=== PATIENT | female | born 1965 | race Caucasian/White ===

== ENCOUNTER 2016-10-27 10:53 | Outpatient (CLI) | payer OTHER ==
[2016-10-27 17:05] LABS: ALT (SGPT) 14 U/L (0-55); AST (SGOT) 19 U/L (5-34); Albumin 3.7 g/dL (3.5-5.0); Alkaline Phosphatase 77 U/L (40-150); Anion Gap 10 mmol/L (10-20); BUN (Urea Nitrogen) 8 mg/dL (7.0-18.7); Bilirubin, Total 0.2 mg/dL (0.2-1.2); Calc. Creatinine Clearance 0 mL/min (70-130); Calcium 8.8 mg/dL (7.8-10.44); Carbon Dioxide 27 mmol/L (22-29); Chloride 107 mmol/L (98-107); Estimated GFR-MDRD 90; Globulin 2.4 g/dL (2.4-3.5); Glucose 100 mg/dL (70-105); Potassium 3.9 mmol/L (3.5-5.1); Protein, Total 6.1 g/dL (6.0-8.3); Sodium 140 mmol/L (136-145)
[2016-10-27 18:25] LABS: Ferritin 3.29 ng/mL (10-291)
[2016-10-27 21:49] LABS: #Basophils 0.1 thou/uL (0.0-0.2); #Eosinphils 0.2 thou/uL (0.0-0.7); #Lymphocytes 1.6 thou/uL (1.20-3.40); #Monocytes 0.2 thou/uL (0.11-0.59); #Neutrophils 2.6 thou/uL (1.40-6.50); %Basophils 2.1 % (0.0-1.0); %Eosinophils 3.9 % (0.0-10.0); %Monocytes 4.3 % (0.0-10.0); %Neutrophils 54.6 % (42.0-75.0); Hemoglobin 9.4 g/dL (12.0-16.0); MDiff Complete? YES; Mean Corpuscular HGB CONC 28.3 g/dL (32.0-36.0); Mean Corpuscular Volume 70.8 fl (81.0-99.0); Mean Platelet Volume 6.2 fL (7.4-10.4); Microcytosis MODERATE=15-30 cells (100X) (0-5/hpf); PLT Morphology Comment Appears Adequate; Platelet Count 385 thou/uL (130-400); RBC Distribution Width 15.9 % (11.5-14.5); White Blood Cell (WBC) Count 4.7 thou/uL (4.8-10.8)
[2016-10-27 22:17] LABS: Thyroid Stimulating Hormone 0.822 uIU/mL (0.35-4.94)
[2016-10-28 21:13] LABS: Iron 24 ug/dL (50-170); Iron Binding Capacity, Total 378 mcg/dL (265-497)
== END 2016-10-27 10:54 | disposition home or self-care (01) ==
LOC: LABLEX 10:53
PROVIDERS: ATTEND Family Medicine
DX: M79.671 Pain in right foot (principal); D50.9 Iron deficiency anemia, unspecified; G47.00 Insomnia, unspecified; M25.50 Pain in unspecified joint
CPT/HCPCS: 80053; 82728; 83540; 83550; 84443; 85025; 85652; 86430

== ENCOUNTER 2016-10-27 15:49 | Outpatient (CLI) | payer OTHER ==
--- NOTE | 2016-10-27 20:15 | RAD ---
RIGHT FOOT THREE VIEWS 10/27/16 No fracture was seen. The bony structures showed no acute changes. There is probably the beginnings of a very tiny calcaneal spur. IMPRESSION: No acute changes. POS: HOME
== END 2016-10-27 15:50 | disposition home or self-care (01) ==
LOC: BURRAD 15:49
PROVIDERS: ATTEND Family Medicine
DX: M79.671 Pain in right foot (principal)

== ENCOUNTER 2016-11-03 13:49 | Outpatient (CLI) | payer OTHER | END 2016-11-03 13:50 | disposition home or self-care (01) | LOC: LABLEX 13:49 | PROVIDERS: ATTEND Family Medicine | DX: Z12.4 Encounter for screening for malignant neoplasm of cervix (principal); Z00.00 Encounter for general adult medical examination without abnormal findings | CPT/HCPCS: 87624; 88142; G0123 ==

== ENCOUNTER 2017-10-04 19:43 | Emergency (ER) | payer OTHER ==
[2017-10-04] MEDS ORDERED: HYDROcodone/Acetaminophen 5/325 mg Tablet ONE (20:26)
--- NOTE | 2017-10-04 23:11 | RAD ---
RIGHT FOREARM TWO VIEWS: Date: 10-04-17 FINDINGS: No fracture was seen. The radius and ulna appear intact. There is no sign of joint effusion at the el bow. IMPRESSION: No acute finding. POS: HOME
--- NOTE | 2017-10-04 23:11 | RAD ---
RIGHT HUMERUS TWO VIEWS: Date: 10-04-17 FINDINGS: No fracture was seen. The humerus appears intact. There is no dislocation. IMPRESSION: No acute finding. POS: HOME
== END 2017-10-04 20:53 | disposition home or self-care (01) ==
LOC: BURERS 19:43
DX: S53.401A Unspecified sprain of right elbow, initial encounter (principal); I10 Essential (primary) hypertension; F41.9 Anxiety disorder, unspecified; F32.9 Major depressive disorder, single episode, unspecified; Z79.899 Other long term (current) drug therapy; W18.30XA Fall on same level, unspecified, initial encounter

== ENCOUNTER 2019-02-14 12:00 | Outpatient (CLI) | payer OTHER ==
--- NOTE | 2019-02-14 19:37 | RAD ---
RIGHT FOOT THREE VIEWS: 02/14/19 No fracture was seen. The first MTP joint appears normal, as do the adjacent bones. A tiny calcaneal spur was present. IMPRESSION: No acute findings. POS: HOME
== END 2019-02-14 12:01 | disposition home or self-care (01) ==
LOC: BURRAD 12:00
PROVIDERS: ATTEND Physician Assistant
DX: S99.921A Unspecified injury of right foot, initial encounter (principal)

== ENCOUNTER 2020-02-11 09:39 | Emergency (ER) | payer OTHER, SELFPAY ==
[2020-02-11 10:00] LABS: Blood, Urine Large (Negative); Clarity Turbid (Clear); Leukocyte Negative (Negative)
[2020-02-11 10:02] LABS: Nitrite Unable to Interpret (Negative); Protein, Urine (Dipstick) Unable to Interpret mg/dL (Neg-Trace)
[2020-02-11 10:03] LABS: Bilirubin Unable to Interpret (Negative); Glucose, Urine (Dipstick) Unable to Interpret mg/dL (Negative); Ketone, Urine Unable to Interpret mg/dL (Negative); Urobilinogen UNABLE TO INTERPRET mg/dL (Less than 2)
[2020-02-11 10:04] LABS: Specific Gravity, Urine 1.007 (1.002-1.036)
[2020-02-11 10:05] LABS: Pregnancy Test - Urine (BHCG) Negative (Negative); Pregu Control Background? CLEAR/WHITE (CLR/WHITE); Pregu Control Bar Appear? YES (CONTROL BAR); Specific Gravity 1.007 (1.002-1.036)
[2020-02-11 10:15] LABS: RBC/HPF Greater than 50 HPF (0-3)
[2020-02-11 10:16] LABS: Bacteria/HPF Rare-Few HPF (None Seen); WBC/HPF 0-3 HPF (0-3)
[2020-02-11] MEDS ORDERED: Ondansetron PF 4 MG/2 ML Vial ONE (10:19)
[2020-02-11] MEDS ORDERED: Ketorolac Tromethamine 30 MG/ML VIAL ONE (10:19)
[2020-02-11] MEDS ORDERED: Fentanyl 100 MCG/2 ML VIAL ONE (10:19)
[2020-02-11 10:22] LABS: Hemoglobin 11.9 g/dL (12.0-16.0); Mean Corpuscular HGB CONC 29.9 g/dL (32.0-36.0); Mean Corpuscular Hemoglobin 25.6 pg (27.0-31.0); Mean Corpuscular Volume 85.5 fL (78.0-98.0); Mean Platelet Volume 7.5 fL (7.4-10.4); Platelet Count 410 thou/uL (130-400); RBC Distribution Width 13.9 % (11.5-14.5); Red Blood Cell (RBC) Count 4.66 mill/uL (4.20-5.40); White Blood Cell (WBC) Count 7.8 thou/uL (4.8-10.8)
[2020-02-11 10:25] LABS: Anion Gap 13 mmol/L (10-20); BUN (Urea Nitrogen) 12 mg/dL (9.8-20.1); Calc. Creatinine Clearance 0 mL/min (70-130); Calcium 8.9 mg/dL (7.8-10.44); Carbon Dioxide 28 mmol/L (22-29); Chloride 102 mmol/L (98-107); Estimated GFR-MDRD 89; Glucose 84 mg/dL (70-105); Potassium 3.4 mmol/L (3.5-5.1); Sodium 140 mmol/L (136-145)
[2020-02-11] MEDS ORDERED: Iopamidol 370 76% 100 ML VIAL ONE (10:27)
[2020-02-11 10:38] LABS: #Basophils 0.1 thou/uL (0.0-0.2); #Eosinphils 0.1 thou/uL (0.0-0.7); #Lymphocytes 2.8 thou/uL (1.20-3.40); #Monocytes 0.7 thou/uL (0.11-0.59); #Neutrophils 4.1 thou/uL (1.40-6.50); %Basophils 1.7 % (0.0-1.0); %Eosinophils 1.3 % (0.0-10.0); %Lymphocytes 36.1 % (21.0-51.0); %Monocytes 8.8 % (0.0-10.0); %Neutrophils 52.1 % (42.0-75.0); Hypochromia SLIGHT = 6-15 cells (100X) (0-5/hpf); MDiff Complete? YES
--- NOTE | 2020-02-11 13:22 | CT ---
CT ABDOMEN AND PELVIS WITH CONTRAST: DATE: 02/11/2020. FINDINGS: Spiral CT of the abdomen and pelvis was done using IV contrast only. The lung bases are clear. The liver, spleen, pancreas, gallbladder, adrenal glands, kidneys, and abd ominal aorta all appeared normal. No stones were seen in the gallbladder. There is no sign of stone s or obstruction in the urinary tract. Regarding the bowel, there is a moderate amount of fecal material in the colon, but no bowel wall thi ckening was seen. There were no inflammatory changes around bowel. There was no sign of diverticuli tis. The sigmoid colon is rather redundant and has abundant fecal material in it. CT of the pelvis showed the patient's uterus to be somewhat generous in size. There is a moderate am ount of fluid in the lower uterine segment, though I understand the patient is currently on her cycle . The left ovary is a little more prominent in size than the right, but specific abnormalities in it are difficult to assess. Ultrasound would be much better at assessing this ovary and uterus, if nee ded. There is no free fluid in the pelvis or inflammatory change in the region. IMPRESSION: 1. Mild prominence of uterine size and perhaps the left ovary, it not necessarily abnormal, however. The pelvic ultrasound could be instructive if symptoms point that direction. 2. Mild constipation. No evidence of diverticulitis. Preliminary report discussed with Dr. Ferguson at 10:48 on 02/11/2020. CODE CR POS: HOME
== END 2020-02-11 11:11 | disposition home or self-care (01) ==
LOC: BURERS 09:39
DX: K59.00 Constipation, unspecified (principal); I10 Essential (primary) hypertension; F41.9 Anxiety disorder, unspecified; F32.9 Major depressive disorder, single episode, unspecified; Z79.899 Other long term (current) drug therapy
CPT/HCPCS: 74177; 80048; 81003; 81015; 81025; 85025; 96374; 96375; J1885; J2405; J3010; Q9967